=== PATIENT | female | born 1960 | race Caucasian/White ===

== ENCOUNTER → 2018-02-19 | Outpatient (CLI) | payer OTHER ==
--- NOTE | 2018-02-19 13:44 | RAD ---
EXAM: Lumbar spine, 3 views. HISTORY: Pain. Chronic L5 fracture. COMPARISON: None. FINDINGS: 3 views of the lumbar spine are obtained. There is no listhesis. The vertebral abdalla are normal in height and the disc space are preserved. There is endplate remodeling at multiple levels, primarily L3-L4. There is facet arthropathy predominantly at L5-S1. IMPRESSION: 1. Mild multilevel degenerative change. 2. No acute osseous finding. Electronically signed by: Selin Dong MD (02/19/2018 1:41 PM) [facility]
== END | disposition home or self-care (01) ==
LOC: RAD 10:14
PROVIDERS: ATTEND Neuromusculoskeletal Medicine, Sports Medicine
DX: M51.36 Other intervertebral disc degeneration, lumbar region (principal); M12.88 Other specific arthropathies, not elsewhere classified, other specified site
CPT/HCPCS: 72100